=== PATIENT | male | born 1970 | race Caucasian/White ===

== ENCOUNTER 2020-10-10 12:04 | Inpatient (IN) | payer OTHER, SELFPAY ==
[~2020-10-10] VITALS: Ht 162.6 cm; Wt 86.2 kg
[2020-10-10 13:24] LABS: BASOPHILS % 0.2 % (0.0-2.0); EOSINOPHILS % 0.2 % (0.0-5.0); HEMATOCRIT. 40.3 % (42.0-52.0); HEMOGLOBIN. 13.7 g/dL (14.0-18.0); LYMPHOCYTES % 26.9 % (20.0-50.0); MEAN CORPUSCULAR HEMOGLOBIN 28.8 pg (28.0-32.0); MEAN CORPUSCULAR VOLUME 84.5 fL (80.0-94.0); MEAN PLATELET VOLUME 8.1 fl (7.4-10.4); MONOCYTES % 10.6 % (2.0-8.0); NEUTROPHILS % 62.1 % (40.0-76.0); PLATELET 213 x1000/uL (130-400); RED BLOOD CELL COUNT 4.77 mill/uL (4.7-6.1); RED CELL DISTRIBUTION WIDTH 13.8 % (11.6-14.6)
[2020-10-10 13:27] LABS: CHLORIDE 104 mEq/L (98-107)
[2020-10-10 13:52] LABS: PROTHROMBIN TIME 10.9 sec (9.6-11.0)
[2020-10-10] MEDS ORDERED: ASPIRIN 81MG TABLET PO ONE (14:00)
[2020-10-10] MEDS ORDERED: AZITHROMYCIN 500 MG in DEXT 5% WATER 250 ML IV ONE (14:00)
[2020-10-10] MEDS ORDERED: CEFTRIAXONE 1 G PREMIX 50 ML IV ONE (14:00)
[2020-10-10] MEDS ORDERED: DEXAMETHASONE 10 MG/ML VIAL IV ONE (14:00)
[2020-10-10] MEDS ORDERED: OSELTAMIVIR 75MG CAPSULE PO ONE (17:00)
[2020-10-10] MEDS ORDERED: CLONIDINE 0.1MG TABLET PO PRN (22:45)
[2020-10-10] MEDS ORDERED: MAGNESIUM/ALUMINUM HYDROXIDE/SIMETHICONE 30ML UDC PO PRN (22:45)
[2020-10-10] MEDS ORDERED: DIPHENHYDRAMINE 50MG/ML VIAL IV PRN (22:45)
[2020-10-10] MEDS ORDERED: BENZONATATE 100MG CAPSULE PO PRN (22:45)
[2020-10-10] MEDS ORDERED: ZOLPIDEM TARTRATE 5MG TABLET PO PRN (22:45)
[2020-10-10] MEDS ORDERED: ACETAMINOPHEN 325MG TABLET PO PRN ×2 (22:45)
[2020-10-10] MEDS ORDERED: ONDANSETRON HCL 4MG/2ML INJ IV PRN (22:45)
[2020-10-11] MEDS ORDERED: DEXTROSE 50% WATER 50ML SYRINGE IV PRN (01:15)
[2020-10-11] MEDS: SODIUM CHLORIDE 0.9% INJ 3ML FLUSH IVF SCH ×3 (06:03→22:03)
[2020-10-11] MEDS: BLOOD SUGAR DIAGNOSTIC STRIP TEST SCH ×5 (07:30→21:00)
[2020-10-11] MEDS: INSULIN LISPRO 100 UNITS/ML SUBCUT SCH ×4 (08:53→21:00)
[2020-10-11] MEDS ORDERED: CHOLECALCIFEROL (D3) 1000 UNIT TABLET PO SCH (09:00)
[2020-10-11] MEDS: FAMOTIDINE 20MG TABLET PO SCH ×2 (09:48→22:02)
[2020-10-11] MEDS: GUAIFENESIN 600MG ER TABLET PO SCH ×2 (09:48→21:00)
[2020-10-11] MEDS: ENOXAPARIN 40MG/0.4ML SYR SUBCUT SCH (09:48)
[2020-10-11] MEDS: DEXAMETHASONE 10 MG/ML VIAL IV SCH (09:48)
[2020-10-11] MEDS ORDERED: CEFTRIAXONE 1 G PREMIX 50 ML IV SCH (13:00)
[2020-10-11] MEDS ORDERED: AZITHROMYCIN 500 MG in DEXT 5% WATER 250 ML IV SCH ×4 (14:00)
[2020-10-11 14:02] VITALS: BP 121/65
[2020-10-11] MEDS: CEFTRIAXONE 1,000 MG in DEXTROSE 5% WATER 50 ML IV SCH (15:18)
[2020-10-11] MEDS ORDERED: ERGOCALCIFEROL 50000UNITS CAPSULE PO SCH (17:00)
[2020-10-11 20:00] VITALS: BP 105/70
[2020-10-11] MEDS ORDERED: ALBUTEROL 6.7GM HFA INHALER ORI PRN (20:00)
[2020-10-11] MEDS: ASCORBIC ACID 500 MG TABLET PO SCH (22:02)
[2020-10-11] MEDS: DOXYCYCLINE HYCLATE 100MG CAPSULE PO SCH (22:02)
[2020-10-12] VITALS: BP 107/63
[2020-10-12 04:00] VITALS: BP 109/70
[2020-10-12] MEDS: BLOOD SUGAR DIAGNOSTIC STRIP TEST SCH ×4 (07:40→21:00)
[2020-10-12 08:00] VITALS: BP 95/50
[2020-10-12] MEDS: INSULIN LISPRO 100 UNITS/ML SUBCUT SCH ×4 (08:10→22:59)
[2020-10-12] MEDS: ENOXAPARIN 40MG/0.4ML SYR SUBCUT SCH (09:51)
[2020-10-12] MEDS: FAMOTIDINE 20MG TABLET PO SCH ×2 (09:52→23:00)
[2020-10-12] MEDS: ASCORBIC ACID 500 MG TABLET PO SCH ×2 (09:52→23:00)
[2020-10-12] MEDS: GUAIFENESIN 600MG ER TABLET PO SCH ×2 (09:52→23:00)
[2020-10-12] MEDS: DOXYCYCLINE HYCLATE 100MG CAPSULE PO SCH ×2 (09:52→23:00)
[2020-10-12] MEDS: DEXAMETHASONE 10 MG/ML VIAL IV SCH (09:52)
[2020-10-12] MEDS: SODIUM CHLORIDE 0.9% INJ 3ML FLUSH IVF SCH ×3 (09:53→23:00)
[2020-10-12 12:00] VITALS: BP 100/62
[2020-10-12] MEDS: CEFTRIAXONE 1,000 MG in DEXTROSE 5% WATER 50 ML IV SCH (12:38)
[2020-10-12 16:00] VITALS: BP 109/69
[2020-10-12] MEDS: POLYVINYL ALCOHOL OPHTH DROPS 15ML BOTHEYE SCH (23:00)
[2020-10-13] VITALS: BP 99/65
[2020-10-13 04:00] VITALS: BP 102/65
[2020-10-13] MEDS: POLYVINYL ALCOHOL OPHTH DROPS 15ML BOTHEYE SCH ×3 (06:20→18:26)
[2020-10-13] MEDS: SODIUM CHLORIDE 0.9% INJ 3ML FLUSH IVF SCH ×3 (06:20→22:52)
[2020-10-13 06:34] LABS: BASOPHILS % 0.3 % (0.0-2.0); EOSINOPHILS % 0.1 % (0.0-5.0); HEMATOCRIT. 40.3 % (42.0-52.0); HEMOGLOBIN. 13.7 g/dL (14.0-18.0); LYMPHOCYTES % 11.3 % (20.0-50.0); MEAN CORPUSCULAR HEMOGLOBIN 28.8 pg (28.0-32.0); MEAN CORPUSCULAR VOLUME 84.7 fL (80.0-94.0); MONOCYTES % 7.3 % (2.0-8.0); PLATELET 347 x1000/uL (130-400); RED BLOOD CELL COUNT 4.77 mill/uL (4.7-6.1); RED CELL DISTRIBUTION WIDTH 13.7 % (11.6-14.6)
[2020-10-13 06:40] LABS: CHLORIDE 107 mEq/L (98-107)
[2020-10-13 08:00] VITALS: BP 97/69
[2020-10-13] MEDS: INSULIN LISPRO 100 UNITS/ML SUBCUT SCH ×4 (08:10→22:52)
[2020-10-13] MEDS: BLOOD SUGAR DIAGNOSTIC STRIP TEST SCH ×4 (08:10→22:35)
[2020-10-13] MEDS: ASCORBIC ACID 500 MG TABLET PO SCH ×2 (08:39→22:39)
[2020-10-13] MEDS: ENOXAPARIN 40MG/0.4ML SYR SUBCUT SCH (08:39)
[2020-10-13] MEDS: GUAIFENESIN 600MG ER TABLET PO SCH ×2 (08:40→22:39)
[2020-10-13] MEDS: DEXAMETHASONE 10 MG/ML VIAL IV SCH (08:40)
[2020-10-13] MEDS: FAMOTIDINE 20MG TABLET PO SCH ×2 (08:40→22:39)
[2020-10-13] MEDS: DOXYCYCLINE HYCLATE 100MG CAPSULE PO SCH ×2 (08:40→22:39)
[2020-10-13 12:00] VITALS: BP 119/78
[2020-10-13] MEDS: CEFTRIAXONE 1,000 MG in DEXTROSE 5% WATER 50 ML IV SCH ×2 (13:29→14:51)
[2020-10-13 16:00] VITALS: BP 114/73
[2020-10-13 20:00] VITALS: BP 98/52
[2020-10-14] VITALS: BP 107/63
[2020-10-14] MEDS: POLYVINYL ALCOHOL OPHTH DROPS 15ML BOTHEYE SCH ×4 (01:13→18:01)
[2020-10-14 04:00] VITALS: BP 108/76
[2020-10-14] MEDS: SODIUM CHLORIDE 0.9% INJ 3ML FLUSH IVF SCH ×3 (05:10→22:25)
[2020-10-14] MEDS: BLOOD SUGAR DIAGNOSTIC STRIP TEST SCH ×4 (06:49→22:15)
[2020-10-14] MEDS: INSULIN LISPRO 100 UNITS/ML SUBCUT SCH ×4 (06:51→22:15)
[2020-10-14 08:00] VITALS: BP 102/61
[2020-10-14] MEDS: DOXYCYCLINE HYCLATE 100MG CAPSULE PO SCH ×2 (09:14→22:25)
[2020-10-14] MEDS: ASCORBIC ACID 500 MG TABLET PO SCH ×2 (09:14→22:25)
[2020-10-14] MEDS: GUAIFENESIN 600MG ER TABLET PO SCH ×2 (09:14→22:31)
[2020-10-14] MEDS: FAMOTIDINE 20MG TABLET PO SCH ×2 (09:14→22:31)
[2020-10-14] MEDS: ENOXAPARIN 40MG/0.4ML SYR SUBCUT SCH (09:15)
[2020-10-14] MEDS: DEXAMETHASONE 10 MG/ML VIAL IV SCH (09:27)
[2020-10-14 12:00] VITALS: BP 99/63
[2020-10-14 12:43] LABS: BG BASE EXCESS -0.7 mmol/L (-2.0-2.0); BG CARBOXYHEMOGLOBIN 0.5 % (0.5-1.5); BG DEOXYHEMOGLOBIN 3.3 % (0.0-5.0); BG HCO3 ACT 23.4 mmol/L (22.0-26.0); BG METHEMOGLOBIN 0.1 % (0.0-1.5); BG OXYGEN SATURATION 96.7 % (92.0-98.5); BG OXYHEMOGLOBIN 96.1 % (94.0-97.0); BG PH 7.418 (7.350-7.450); BG PO2 91.7 mmHg (75.0-100.0); BG SAMPLE SITE RIGHT RADIAL; BG VENT MODE NASAL CANNULA
[2020-10-14] MEDS: CEFTRIAXONE 1,000 MG in DEXTROSE 5% WATER 50 ML IV SCH (13:10)
[2020-10-14 16:00] VITALS: BP 94/66
[2020-10-14 20:00] VITALS: BP 95/50
[2020-10-15] VITALS: BP 106/55
[2020-10-15 04:00] VITALS: BP 103/52
[2020-10-15] MEDS: POLYVINYL ALCOHOL OPHTH DROPS 15ML BOTHEYE SCH ×5 (06:00→23:59)
[2020-10-15 06:19] LABS: HEMATOCRIT. 40.9 % (42.0-52.0); HEMOGLOBIN. 13.6 g/dL (14.0-18.0); MEAN CORPUSCULAR HEMOGLOBIN 27.9 pg (28.0-32.0); MEAN CORPUSCULAR VOLUME 83.9 fL (80.0-94.0); MEAN PLATELET VOLUME 7.8 fl (7.4-10.4); PLATELET 387 x1000/uL (130-400); RED BLOOD CELL COUNT 4.87 mill/uL (4.7-6.1); RED CELL DISTRIBUTION WIDTH 13.8 % (11.6-14.6)
[2020-10-15 06:41] LABS: CHLORIDE 104 mEq/L (98-107)
[2020-10-15] MEDS: SODIUM CHLORIDE 0.9% INJ 3ML FLUSH IVF SCH ×3 (06:58→21:05)
[2020-10-15] MEDS: INSULIN LISPRO 100 UNITS/ML SUBCUT SCH ×4 (06:58→21:00)
[2020-10-15] MEDS: BLOOD SUGAR DIAGNOSTIC STRIP TEST SCH ×4 (06:58→21:06)
[2020-10-15 08:00] VITALS: BP 107/60
[2020-10-15] MEDS: DEXAMETHASONE 10 MG/ML VIAL IV SCH (09:18)
[2020-10-15] MEDS: ENOXAPARIN 40MG/0.4ML SYR SUBCUT SCH (09:18)
[2020-10-15] MEDS: GUAIFENESIN 600MG ER TABLET PO SCH ×2 (09:19→21:05)
[2020-10-15] MEDS: DOXYCYCLINE HYCLATE 100MG CAPSULE PO SCH ×2 (09:19→21:02)
[2020-10-15] MEDS: ASCORBIC ACID 500 MG TABLET PO SCH ×2 (09:19→21:05)
[2020-10-15] MEDS: FAMOTIDINE 20MG TABLET PO SCH ×2 (09:19→21:05)
[2020-10-15 12:00] VITALS: BP 112/75
[2020-10-15] MEDS: CEFTRIAXONE 1,000 MG in DEXTROSE 5% WATER 50 ML IV SCH (13:55)
[2020-10-15 16:00] VITALS: BP 116/68
[2020-10-15 17:22] LABS: PLATELET ESTIMATE NORMAL
[2020-10-15 17:54] LABS: BG BASE EXCESS -0.1 mmol/L (-2.0-2.0); BG CARBOXYHEMOGLOBIN 0.5 % (0.5-1.5); BG DEOXYHEMOGLOBIN 2.7 % (0.0-5.0); BG HCO3 ACT 22.8 mmol/L (22.0-26.0); BG METHEMOGLOBIN 0.1 % (0.0-1.5); BG OXYGEN SATURATION 97.3 % (92.0-98.5); BG OXYHEMOGLOBIN 96.7 % (94.0-97.0); BG PCO2 32.2 mmHg (35.0-45.0); BG PH 7.468 (7.350-7.450); BG PO2 95.5 mmHg (75.0-100.0); BG SAMPLE SITE RIGHT RADIAL; BG TOTAL HEMOGLOBIN 14.5 g/dL (12.0-18.0); BG VENT MODE ROOM AIR
[2020-10-15 20:00] VITALS: BP 100/67
[2020-10-16 00:19] VITALS: BP 107/69
[2020-10-16 04:00] VITALS: BP 90/48
[2020-10-16] MEDS: SODIUM CHLORIDE 0.9% INJ 3ML FLUSH IVF SCH ×3 (05:43→21:25)
[2020-10-16] MEDS: BLOOD SUGAR DIAGNOSTIC STRIP TEST SCH ×4 (05:43→21:25)
[2020-10-16] MEDS: POLYVINYL ALCOHOL OPHTH DROPS 15ML BOTHEYE SCH ×3 (05:44→17:03)
[2020-10-16 08:00] VITALS: BP 103/74
[2020-10-16] MEDS: INSULIN LISPRO 100 UNITS/ML SUBCUT SCH ×4 (08:10→21:33)
[2020-10-16] MEDS: DEXAMETHASONE 10 MG/ML VIAL IV SCH (09:46)
[2020-10-16] MEDS: ENOXAPARIN 40MG/0.4ML SYR SUBCUT SCH (09:46)
[2020-10-16] MEDS: ASCORBIC ACID 500 MG TABLET PO SCH ×2 (09:46→21:25)
[2020-10-16] MEDS: FAMOTIDINE 20MG TABLET PO SCH ×2 (09:47→21:25)
[2020-10-16] MEDS: GUAIFENESIN 600MG ER TABLET PO SCH ×2 (09:47→21:25)
[2020-10-16] MEDS: DOXYCYCLINE HYCLATE 100MG CAPSULE PO SCH ×2 (09:47→21:25)
[2020-10-16 12:00] VITALS: BP 110/70
[2020-10-16 16:00] VITALS: BP 110/73
[2020-10-16 20:00] VITALS: BP 106/74
[2020-10-17] VITALS: BP 97/53
[2020-10-17] MEDS: POLYVINYL ALCOHOL OPHTH DROPS 15ML BOTHEYE SCH ×3 (00:13→13:30)
[2020-10-17 04:00] VITALS: BP 96/54
[2020-10-17] MEDS: SODIUM CHLORIDE 0.9% INJ 3ML FLUSH IVF SCH ×2 (06:00→13:30)
[2020-10-17] MEDS: BLOOD SUGAR DIAGNOSTIC STRIP TEST SCH ×2 (06:33→13:01)
[2020-10-17] MEDS: INSULIN LISPRO 100 UNITS/ML SUBCUT SCH ×2 (07:50→12:50)
[2020-10-17 08:00] VITALS: BP 114/60
[2020-10-17] MEDS: GUAIFENESIN 600MG ER TABLET PO SCH (09:00)
[2020-10-17] MEDS: FAMOTIDINE 20MG TABLET PO SCH (09:00)
[2020-10-17] MEDS: ASCORBIC ACID 500 MG TABLET PO SCH (09:24)
[2020-10-17] MEDS: DEXAMETHASONE 10 MG/ML VIAL IV SCH (09:25)
[2020-10-17] MEDS: ENOXAPARIN 40MG/0.4ML SYR SUBCUT SCH (09:25)
[2020-10-17 12:00] VITALS: BP 97/60
[2020-10-17 16:00] VITALS: BP 98/54
[2020-10-17 18:16] VITALS: BP 98/54
[2020-10-18] MEDS ORDERED: DEXAMETHASONE 4MG/ML 1ML VIAL PO SCH (09:00)
== END 2020-10-17 18:51 | disposition home or self-care (01) | DRG 871 ==
LOC: ER 12:16 → MICUSO 15:51 → EDBEDREQ 16:01 → 7WST 10-11 11:59 → 6WST 10-16 23:30
PROVIDERS: ADMIT Internal Medicine; ATTEND Internal Medicine
DX: A41.89 Other specified sepsis (principal); U07.1 COVID-19; J96.01 Acute respiratory failure with hypoxia; J12.89 Other viral pneumonia; D68.59 Other primary thrombophilia; E78.00 Pure hypercholesterolemia, unspecified; R73.03 Prediabetes; Z79.899 Other long term (current) drug therapy
CPT/HCPCS: 36415; 36600; 71045; 80048; 80053; 82375; 82728; 82805; 82962; 83036; 83605; 83880; 84145; 84484; 85025; 86140; 87804; 93005; 99285; J0456; J0696; J1100; J1650; J1815; J7060; U0003